=== PATIENT | female | born 1980 | race Hispanic/Latino ===

== ENCOUNTER 2024-09-03 17:13 | Emergency (ER) | payer OTHER ==
[~2024-09-03] VITALS: Ht 170.2 cm; Wt 83.9 kg
[2024-09-03 18:17] LABS: CORONAVIRUS COVID-19 AG NEGATIVE (NEGATIVE); INFLUENZA A AG NEGATIVE (NEGATIVE); INFLUENZA B AG NEGATIVE (NEGATIVE)
[2024-09-03 18:19] LABS: BILIRUBIN,URINE NEGATIVE (NEGATIVE); CLARITY,URINE SL CLOUDY (CLEAR); COLOR,URINE YELLOW (YELLOW); GLUCOSE, URINE NEGATIVE (NEGATIVE); KETONES,URINE NEGATIVE (NEGATIVE); LEUKOCYTE ESTERASE ,URINE TRACE (NEGATIVE); NITRITE,URINE NEGATIVE (NEGATIVE); PH,URINE 6.5 (5 - 7); PROTEIN,URINE DIPSTICK NEGATIVE (NEGATIVE); URINE UROBILINOGEN 0.2 mg/dL (0.2 - 1)
[2024-09-03 18:30] LABS: BASOPHILS % 0.3 % (0.0-1.0); HEMATOCRIT 39.9 % (34.2-44.1); HEMOGLOBIN 13.1 g/dL (12.0-16.0); LYMPHOCYTES # (AUTO) 0.5 (1.0-3.2); LYMPHOCYTES % 7.1 % (18.0-39.1); MEAN CORPUSCULAR HEMOGLOBIN 29.4 pg (28-32); MEAN CORPUSCULAR HGB CONC 32.8 g/dL (31-35); MEAN CORPUSCULAR VOLUME 89.7 fL (81-99); MONOCYTES # (AUTO) 0.6 (0.2-0.8); MONOCYTES % 8.4 % (4.4-11.3); NEUTROPHILS # (AUTO) 5.5 (2.1-6.9); NEUTROPHILS % 83.9 % (38.7-80.0); PLATELET COUNT 217 x10e3/uL (140-360); RED BLOOD COUNT 4.45 x10e6/uL (3.6-5.1); WHITE BLOOD COUNT 6.52 x10e3/uL (4.8-10.8)
[2024-09-03 18:45] LABS: BACTERIA,URINE MODERATE /HPF
[2024-09-03 18:46] LABS: EPITHELIAL CELLS,URINE FEW /LPF; YEAST,URINE RARE
[2024-09-03] MEDS: SODIUM CHLORIDE 0.9% 1000ML 1,000 ML IV ONE (18:54)
[2024-09-03] MEDS: ACETAMINOPHEN 325 MG TAB PO ONE (18:55)
[2024-09-03] MEDS: KETOROLAC TROMETHAMINE 30 MG/ML VIAL IV STA (18:55)
[2024-09-03 18:58] LABS: ALBUMIN/GLOBULIN RATIO 1.1 (0.8-2.0); ANION GAP 13.9 mmol/L (8-16); BILIRUBIN,TOTAL 0.3 mg/dL (0.2-1.2); CALCIUM 9.2 mg/dL (8.4-10.2); CREATININE, SERUM 0.86 mg/dL (0.57-1.11); POTASSIUM 3.9 mmol/L (3.5-5.1); TOTAL PROTEIN 7.6 g/dL (6.5-8.1)
[2024-09-03 18:59] LABS: LIPASE 26 U/L (8-78)
[2024-09-03] MEDS ORDERED: IOPAMIDOL 370 MG/ML 100 ML INFUS..BTL INJ ONE (19:36)
[2024-09-03 20:14] VITALS: TEMP 98.1
[2024-09-03] MEDS ORDERED: CEFDINIR300 MG PO (21:17)
[2024-09-03 21:21] VITALS: PULSE 98; RESP 19
[2024-09-03 21:23] VITALS: BP 119/81; PULSE 98; RESP 19; TEMP 98.1; O2SAT 97
== END 2024-09-03 21:29 | disposition home or self-care (01) ==
LOC: ER 18:06
DX: R50.9 Fever, unspecified (principal); N39.0 Urinary tract infection, site not specified; R10.31 Right lower quadrant pain; N75.0 Cyst of Bartholin's gland; Z11.52 Encounter for screening for COVID-19
CPT/HCPCS: 36415; 74177; 80053; 81001; 83605; 83690; 84702; 85025; 87040; 87086; 87186; 87428; 99284; J1885; J2543; J7030; Q9967